=== PATIENT | male | born 1940 | race Caucasian/White ===

== ENCOUNTER 2020-08-02 19:18 | Inpatient (IN) | payer MEDICARE ==
[~2020-08-02 19:18] MED LIST: Iopamidol-370 76% 500 ML 1 ML ONE
[2020-08-02 19:44] LABS: #Lymphocytes 1.5 thou/uL (1.20-3.40); #Monocytes 0.7 thou/uL (0.11-0.59); #Neutrophils 9.9 thou/uL (1.40-6.50); %Basophils 0.3 % (0.0-1.0); %Eosinophils 0.3 % (0.0-10.0); %Lymphocytes 12.4 % (21.0-51.0); %Monocytes 5.7 % (0.0-10.0); %Neutrophils 81.2 % (42.0-75.0); Hemoglobin 15.2 g/dL (14.0-18.0); Mean Corpuscular HGB CONC 34.4 g/dL (32.0-36.0); Mean Corpuscular Hemoglobin 31.6 pg (27.0-31.0); Mean Corpuscular Volume 91.7 fL (78.0-98.0); Mean Platelet Volume 8.8 fL (7.4-10.4); Platelet Count 194 thou/uL (130-400); RBC Distribution Width 11.7 % (11.5-14.5); White Blood Cell (WBC) Count 12.1 thou/uL (4.8-10.8)
[2020-08-02 19:52] LABS: PTT 26.5 sec (22.9-36.1); Prothrombin Time 13.8 sec (12.0-14.7)
[2020-08-02 20:01] LABS: ALT (SGPT) 19 U/L (8-55); AST (SGOT) 18 U/L (5-34); Albumin 3.8 g/dL (3.4-4.8); Alkaline Phosphatase 87 U/L (40-110); Anion Gap 17 mmol/L (10-20); BUN (Urea Nitrogen) 16 mg/dL (8.4-25.7); Bilirubin, Total 0.6 mg/dL (0.2-1.2); CK (CPK) 111 U/L (30-200); Calc. Creatinine Clearance 0 mL/min (70-130); Calcium 8.7 mg/dL (7.8-10.44); Carbon Dioxide 25 mmol/L (23-31); Chloride 104 mmol/L (98-107); Globulin 2.9 g/dL (2.4-3.5); Glucose 134 mg/dL (83-110); Lipase 20 U/L (8-78); Potassium 3.6 mmol/L (3.5-5.1); Protein, Total 6.7 g/dL (5.8-8.1); Sodium 142 mmol/L (136-145)
[2020-08-02 20:04] LABS: Acetaminophen Less than 6.0 mcg/mL (10.0-30.0); Alcohol Less than 10 mg/dL (Less than 10); Salicylate Less than 8.0 mg/dL (15.0-30.0)
--- NOTE | 2020-08-02 20:37 | CT ---
CT OF BRAIN PERFORMED WITHOUT CONTRAST ENHANCEMENT: 08/02/20 HISTORY: Stroke alert. There is generalized ventricular and sulcal prominence. There is chronic white matter change. There i s no signs of intracerebral hemorrhage or extra-axial fluid collection. Mastoid air cells and visuali zed sinuses are clear. IMPRESSION: 1. No acute intracranial abnormalities. 2. Findings telephoned to Dr. Casas at 2000 hours. POS: [facility]
--- NOTE | 2020-08-02 20:42 | RAD ---
PORTABLE CHEST: 08/02/20 HISTORY: Syncopal episode. CVA. Heart size within normal limits. There are atherosclerotic changes of the aorta. The lungs are clear of infiltrates. The bones appear demineralized. IMPRESSION: No active intrathoracic disease. POS: [facility]
[2020-08-02 20:52] LABS: Bacteria/HPF None Seen HPF (None Seen); Bilirubin Negative (Negative); Blood, Urine 2+ (Negative); Clarity Clear (Clear); Glucose, Urine (Dipstick) Normal (Negative); Ketone, Urine 20 mg/dL (Negative); Leukocyte Negative Leu/uL (Negative); Mucous/LPF 1+ LPF (<2+); Nitrite Negative (Negative); Protein, Urine (Dipstick) 100 mg/dL (Neg-Trace); Specific Gravity, Urine 1.016 (1.002-1.036); Squamous Epithelial 0-3 HPF (0-3); Urobilinogen Normal mg/dL (Less than 2); pH, Urine 5.5 (5.0-9.0)
[2020-08-02] MEDS ORDERED: Enoxaparin Sodium 80 MG/0.8 ML SYRINGE ONE (20:57)
[2020-08-02] MEDS ORDERED: Aspirin 300 MG Suppository ONE (20:57)
[2020-08-02 21:00] LABS: Amphetamine Not Detected (NotDetected); Barbiturates Screen Not Detected (NotDetected); Benzodiazepine Screen Not Detected (NotDetected); Cocaine Metabolite Screen Not Detected (NotDetected); Medtox Control Line Valid? VALID (VALID); Medtox Reader # READER 4; Methadone Not Detected (NotDetected); Methamphetamine Not Detected (NotDetected); Opiate Screen Not Detected (NotDetected); Oxycodone Screen Not Detected (NotDetected); Phencyclidine (PCP) Not Detected (NotDetected); THC/Cannabinoid Screen Not Detected (NotDetected); Tricyclic Screen Not Detected (NotDetected)
[2020-08-02] MEDS ORDERED: Diltiazem HCl 125 MG, Admixture Fee 1 EACH in Sodium Chloride 0.9% 100 ML IVPB SCH (21:00)
--- NOTE | 2020-08-02 21:43 | CT ---
CT ANGIO OF HEAD AND NECK PERFORMED WITH INTRAVENOUS CONTRAST ENHANCEMENT WITH 3D RECONSTRUCTIONS: 08/02/20 HISTORY: Stroke symptoms. Lung apices are clear. Bilateral thyroid nodules are identified. These would be better investigated w ith ultrasound on an nonemergent basis. No significant jugular chain adenopathy. The parotid and subm andibular gland regions are unremarkable. Parapharyngeal spaces are clear. Good angiographic study was obtained. There is a separate origin of the left common carotid artery fr om the aortic arch. The left vertebral is slightly larger than the right but both make contribution t o the basilar artery. Right common internal and external carotid arteries show no significant stenosis by NASCET criteria. Similar changes are seen on the left. There is some calcified plaque at the origin of the left internet developer al carotid artery. CT ANGIO OF BRAIN PERFORMED WITH INTRAVENOUS CONTRAST ENHANCEMENT WITH 3D RECONSTRUCTIONS: The vertebral basilar system is unremarkable. Posterior cerebral arteries appear normal. There is calcified plaque in the cavernous portions of both internal carotid arteries. The anterior a nd middle cerebral arteries and their branches appear normal. IMPRESSION: Unremarkable CT angio of head and neck. Findings telephoned to Dr. Casas at 2019 hours. POS: [facility]
[2020-08-02 23:10] LABS: Troponin I 0.022 ng/mL (< 0.028)
--- NOTE | 2020-08-03 00:23 | HP ---
CHIEF COMPLAINT: Fall and possible stroke. HISTORY OF PRESENT ILLNESS: Mr. Ontiveros is a 79-year-old male with past medical history of ? Dementia, ? CVA, was brought to the emergency room after his daughter found him at the bedside after an unwitnessed fall. The patient used Life Alert button to call for help. She was notified around 6 p.m. and that he hit the button and EMS responded. Daughter reports the patient had a fall four weeks ago and was hospitalized and went to a rehab facility. She was not told that he had a stroke, but she was told that he probably had suffered left vertebral fracture. He went to rehab. Moved to independent living [facility] in [place], daughter reports caregiver does come once a day to help and came this a.m. Daughter reports that the patient has been increasingly confused, slurring of speech and drooling since the first fall four weeks ago. It has been getting worse. According to her, he does not take a lot of medications. Denies being on aspirin or on any blood thinners. On workup in the emergency room, the patient was found to be in atrial fibrillation with rapid ventricular response. No history of atrial fibrillation as per daughter. The patient also was found to have right facial drooping. The patient has hard time with speech. No further history can be obtained at this time since the patient is unable to give any detailed history. PAST MEDICAL HISTORY: Dementia. PAST SURGICAL HISTORY: None per daughter. FAMILY HISTORY: Reviewed and noncontributory. SOCIAL HISTORY: The patient drinks every day alcohol as per daughter. ? alcohol abuse. ALLERGIES: NO KNOWN ALLERGIES. HOME MEDICATIONS: The patient is on . REVIEW OF SYSTEMS: Unable to obtain due to patient's underlying medical condition/dementia/dysphasia. PHYSICAL EXAMINATION: GENERAL: The patient is awake, alert, has mild right facial drooping. VITAL SIGNS: Blood pressure 146/82, heart rate 120, respiratory rate 20, oxygen saturation 100% on room air, and temperature 98.8. HEENT: Normocephalic, atraumatic. NECK: Supple. CHEST: Decreased air entry bilaterally. HEART: Irregularly irregular, tachycardic. ABDOMEN: Soft, nontender. Bowel sounds present. NEUROLOGIC: Awake, alert, aphasia, right facial drooping, moving all other extremities. PSYCH: Unable to assess. EXTREMITIES: No clubbing, no cyanosis. GENITOURINARY: No suprapubic tenderness. No flank tenderness. LABORATORY DATA: Chest x-ray, no acute finding. CT of the brain, no acute intracranial abnormality. Troponin 0.01. Electrolytes reviewed. Glucose 134, otherwise electrolytes are unremarkable. WBC count is 12.1, hemoglobin 16.2, platelets 194. ASSESSMENT: 1. Atrial fibrillation with rapid ventricular response? New onset of atrial fibrillation. 2. Cerebrovascular accident? acute. 3. Fall. 4. History of alcohol abuse. 5. Dementia. PLAN: 1. Admit. 2. Telemetry monitoring. 3. Frequent neuro checks. 4. Aspirin. 5. Lovenox was started in the emergency room, reassess in a.m. 6. MRI of the brain. 7. 2D echo. 8. Consult Cardiology in a.m. for evaluation and further recommendations. 9. Reconcile home medications. 10. DVT prophylaxis as appropriate. 11. PT/OT eval and treat. 12. Expected length of stay, 2 midnights or more. Case discussed with ED physician and the patient's daughter. Job ID: [id number]
[2020-08-03 00:36] VITALS: BMI 30.3
[2020-08-03] MEDS: Rosuvastatin 20 MG TAB PO SCH ×2 (00:37→20:40)
[2020-08-03] MEDS ORDERED: D5 1/2 NS w/20 mEq KCL 1,000 ML ONE (01:10)
[2020-08-03] MEDS ORDERED: D5 1/2 NS w/20 mEq KCL 1,000 ML IV SCH (01:15)
[2020-08-03 02:16] LABS: Troponin I 0.021 ng/mL (< 0.028)
[2020-08-03 02:29] LABS: Cardiac Risk 2.9 (Less than 4.5)
[2020-08-03] MEDS ORDERED: Aspirin 325 mg Enteric Coated Tablet PO SCH (09:00)
[2020-08-03 09:17] LABS: SARS-CoV-2 MS2 Positive; SARS-CoV-2 N Gene Negative; SARS-CoV-2 S Gene Negative; SARS-CoV-2 by NAA Not Detected (NotDetected); SARS-CoV-2 orf1ab Negative
[2020-08-03] MEDS ORDERED: Aspirin 300 MG Suppository PR SCH ×2 (10:39→11:15)
--- NOTE | 2020-08-03 12:53 | CON ---
NEUROLOGY CONSULTATION: DATE OF CONSULTATION: 08/03/2020 REASON FOR CONSULTATION: Status post fall, possible stroke. HISTORY OF PRESENT ILLNESS: Mr. Ontiveros is a 79-year-old male with medical history significant for dementia and prior stroke, presented to the emergency department after his daughter found him down at the bedside with unwitnessed fall. The patient used Life Alert button to call for help. She was notified around 6 p.m. and heard the emergency button and EMS responded. Per daughter, he had a fall 4 weeks ago and was hospitalized and went to the rehab facility. Daughter reported that he has been extremely confused with slurred speech and drooling since fall 4 weeks ago, but it has worsened significantly. The patient is not on any aspirin or blood thinners. In the emergency room, he was found to be in atrial fibrillation with rapid ventricular response and noted to have right facial droop with unintelligible speech, so he was admitted for stroke workup. Patient is unable to provide the history so history is obtained from review of the medical records PAST MEDICAL HISTORY: Dementia. PAST SURGICAL HISTORY: None. FAMILY HISTORY: No significant family history. SOCIAL HISTORY: The patient lives in [facility]. Denies smoking. He drinks alcohol. There is a concern about alcohol abuse. ALLERGIES: NO KNOWN DRUG ALLERGIES. HOME MEDICATIONS: Please see reconciled, updated medication list. REVIEW OF SYSTEMS: Unobtainable due to the patient's mental status. Vital Signs & Weight: Vital Signs (12 hours) Temp Pulse Ox 08/03/20 12:22 97.0 F L 08/03/20 08:00 99 08/03/20 04:00 95 08/03/20 03:45 98.2 F Weight Weight 176 lb 12.972 oz Most Recent Monitor Data Heart Rate from ECG 74 NIBP 132/91 NIBP BP-Mean 104 Respiration from ECG 21 SpO2 100 I&O: 08/02/20 08/03/20 08/04/20 06:59 06:59 06:59 Intake Total 573 Output Total 400 Balance 173 Additional Labs: Accuchecks 08/02/20 19:23 POC Glucose 132 H Active Medications Generic Name Dose Route Start Last Admin Trade Name Freq PRN Reason Stop Dose Admin Rosuvastatin Calcium 40 mg 08/02/20 21:00 08/03/20 00:37 Rosuvastatin 20 Mg Tab PO Not Given HS QUINN - Exam General Appearance: NAD Eye: PERRL ENT: normocephalic atraumatic Neck: supple Heart: irregular Respiratory: CTAB Gastrointestinal: soft, non-tender Extremities: no cyanosis, no clubbing, no edema Skin: normal turgor Neurological: Mental status; the patient is alert, awake, but has significant dysarthria . Motor; muscle tone and bulk are normal. Moving all 4 extremities equally and symmetrically. Sensory; withdraws to nailbed pressure bilaterally. Cerebellar; did not cooperate with testing. Gait; deferred due to the patient's safety reason. DIAGNOSTIC STUDIES: Data reviewed. I reviewed the CT scan which was negative for acute intracranial pathology. Chest x-ray did not reveal any acute cardiopulmonary process. ASSESSMENT AND PLAN: Mr. Ontiveros is a 79-year-old male with a history significant for alcohol abuse and dementia, presented to the emergency room after a fall and daughter reported slurred speech and confusion for the last few days. He was also found to be in atrial fibrillation with rapid ventricular response. Consider MRI of the brain to rule out acute intracranial process . EEG to evaluate for cortical irritability and to rule out seizures. CTA of the head and neck reviewed, which was negative for acute intracranial pathology. 2D echo to evaluate for left ventricular ejection fraction. Continue telemetry, which showed atrial fibrillation, consider Cardiology input. NPO until cleared by Speech. Aspirin and statin for secondary stroke prevention. Check hemoglobin A1c, fasting lipid panel, and TSH. Start home medication once the patient is cleared by Speech, PT/OT. Continue medical management per primary team. We will continue to follow. Thank you for the consult. Job ID: [id number] MTDD
[2020-08-03] MEDS ORDERED: Ondansetron PF 4 MG/2 ML Vial IVP PRN (13:14)
--- NOTE | 2020-08-03 13:16 | PDOC.HOSPP ---
- Subjective Subjective: Patient is a 79 years old gentleman, who has significant past medical histories of dementia, alcohol abuse, lives by himself, presented to the ED with status post fall, and reportedly slurred speech, confusion for the past few days. Further work-up, found patient was in atrial fibrillation with RVR. Patient was ultimately admitted to hospitalist service for further stroke work- up. - Objective Vital Signs & Weight: Vital Signs (12 hours) Temp Pulse Ox 08/03/20 12:22 97.0 F L 08/03/20 08:00 99 08/03/20 04:00 95 08/03/20 03:45 98.2 F Weight Weight 176 lb 12.972 oz Most Recent Monitor Data Heart Rate from ECG 74 NIBP 132/91 NIBP BP-Mean 104 Respiration from ECG 21 SpO2 100 I&O: 08/02/20 08/03/20 08/04/20 06:59 06:59 06:59 Intake Total 573 Output Total 400 Balance 173 Result Diagrams: 08/02/20 19:23 08/02/20 19:23 Additional Labs: Accuchecks 08/02/20 19:23 POC Glucose 132 H Radiology Reviewed by me: Yes EKG Reviewed by me: Yes Hospitalist ROS - Medication Medications: Active Medications Generic Name Dose Route Start Last Admin Trade Name Freq PRN Reason Stop Dose Admin Rosuvastatin Calcium 40 mg 08/02/20 21:00 08/03/20 00:37 Rosuvastatin 20 Mg Tab PO Not Given HS QUINN - Exam General Appearance: NAD Eye: PERRL ENT: normocephalic atraumatic Neck: supple Heart: irregular Respiratory: CTAB Gastrointestinal: soft, non-tender Extremities: no cyanosis, no clubbing, no edema Skin: normal turgor Neurological: speech deficit Musculoskeletal: normal tone Psychiatric: normal behavior, lethargic Hosp A/P - Plan Patient is a 79 years old gentleman, who has significant past medical history of dementia, alcohol abuse, lives by himself, presented to the ED with status post fall, and reportedly slurred speech, confusion for the past few days. Further work-up, found patient was in atrial fibrillation with RVR. Patient was ultimately admitted to hospitalist service for further stroke work- up. Atrial Fib with RVR --cont Cardizem gtt for rate control, follow Echo --ASA HI for now. Pending MRI, pt needs to be anticoagulated when OK with neurol ogy --Cardiology consulted Dysarthria/Confusion - concerning for possible CVA --cont stroke workup, follow MRI --SP/PT/OT eval --follow EEG --appreciate neurology input. Cont ASA HI for now. Statin therapy when cleared by SP Dementia --supportive cares. Pending home meds.
--- NOTE | 2020-08-03 13:25 | MRI ---
MRI BRAIN NONCONTRAST: DATE: 08/03/2020 HISTORY: 79-year-old male with acute stroke COMPARISON: None FINDINGS: There is a small hyperintense lesion on T2 WI and FLAIR with strongly restricted diffusion indicating acute infarction, at the posterior upper aspect of left basal ganglia, measuring approximately 1 x 0.8 cm, and extending superiorly to the left periventricular white matter, questionable involving bod y of left caudate nucleus. There are additional scattered tiny foci of faint, minimally restricted diffusion elsewhere, includin g periventricular white matter abutting lateral edge of posterior body of right lateral ventricle, periatrial white matter abutting the lateral aspect of the trigone of the right lateral ventricle, an d regions in the bilateral centrum semiovale which are questionable for subacute tiny infarctions. There are multiple tiny old lacunar infarctions in the bilateral centrum semiovale and adrian radiata , and in the bilateral cerebellar hemispheres and adrianne. There are numerous punctate foci of hemosiderin representing remote microhemorrhages in the following locations: Large number and bilateral thalami, several in bilateral basal ganglia, a few in the left parietal lo be, several in right occipital and at least one in the left occipital lobes, numerous in bilateral cerebellar hemispheres, and a few in the adrianne. This could indicate either amyloid angiopathy, chronic hypertensive encephalopathy, or combination of both. There is atrophy of the cerebellum and brainstem as well as cerebrum diffusely. There are confluent hyperintense signal abnormalities throughout the periventricular white matter, ex tending into the adjacent deep and subcortical white matter. No obstructive hydrocephalus, acute intra-axial hemorrhage, mass effect, midline shift, or extra-axia l fluid collection. Appropriate flow voids are maintained in the major central arteries of [place]. IMPRESSION: 1) acute lacunar infarction of left corpus striatum. 2) multiple old lacunar infarctions of bilateral cerebral white matter, brainstem, thalami, and cereb ellum; and possibly bilateral corpus striatum. 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 4) diffuse brain atrophy. 5) moderate to severe chronic ischemic white matter changes (small vessel disease)
--- NOTE | 2020-08-03 15:38 | PDOC.EEG ---
Neurology EEG Report - Report Report: This EEG was performed using 24 channel [employer] video digital EEG machine with 24 disc electrodes. This was an extended 2 hours 6 minutes of inpatient video EEG recording. Digital analysis of the EEG was done for Vikash and seizure detection which revealed no abnormalities. Background: There is a nonsustained posterior background rhythm of 8 to 8.5 Hz. Minimal reactivity seen with eye opening and closure. Photic stimulation: Bioccipital symmetric driving response is observed. Hyperventilation: Not performed Sleep: Drowsiness and sleep are observed. EEG diagnosis: Normal awake drowsy and sleep EEG. Clinical interpretation: This is a normal EEG study
--- NOTE | 2020-08-03 17:41 | CON ---
DATE OF CONSULTATION: 08/03/2020 INDICATION FOR CONSULTATION: A 79-year-old patient, who was admitted after a fall, has dementia and was found to be in atrial fibrillation. He has had some rapid ventricular response. At this time, the patient still remains confused. We get very little history from the patient, most of the information was obtained after evaluation of the patient and by review of the records. Apparently, he lives in independent living and his daughter occasionally checks on him and she is the one actually that has noticed and give most of the history, apparently saying that he has been more confused recently. He is having problems with speech. He also has some history of alcohol use apparently. He has had no history of atrial fibrillation in the past. He has had no significant cardiac history that we aware of. PAST MEDICAL HISTORY: His only past medical history is that he is having now some dementia. I cannot get any past medical history from the patient, but the records refer to some dementia, otherwise relatively unremarkable past medical history. FAMILY HISTORY: Also was unobtainable. According to the records it is noncontributory. SOCIAL HISTORY: He drinks alcohol apparently on a daily basis. ALLERGIES: NONE. MEDICATIONS: At this time, he is on; 1. Aspirin 300 mg. 2. Metoprolol 25 mg, which I just started today 25 mg b.i.d. 3. Crestor 40 mg at bedtime. 4. Ondansetron 4 mg IV q.6 hours p.r.n. REVIEW OF SYSTEMS: Unobtainable. PHYSICAL EXAMINATION: GENERAL: Reveals an elderly gentleman, who does appear to be ill. He was sleeping when I first arrived in the room. He then woke and did have some coughing, but otherwise remained stable. VITAL SIGNS: Blood pressure was 137/77, heart rate is 72 and irregular, respiratory rate is about as 18, and O2 saturations are 97%. HEENT: Unremarkable. Carotid pulses are present. I did not hear any significant bruits. CHEST: Actually clear to auscultation. I did not hear any significant rales, rhonchi, or wheezing at this time. He does have some decreased breath sounds. Otherwise, I do not hear any rales, rhonchi, or wheeze. CARDIOVASCULAR: Reveals an irregular rhythm. He has a systolic murmur at the apex, 2 to 3/6. There were no heaves or thrills. ABDOMEN: Unremarkable. EXTREMITIES: No clubbing, cyanosis, or edema. Pedal pulses are present. NEUROLOGIC: Difficult to determine as the patient may have had a previous stroke. He does not speak clearly and does not seem to understand exactly, where he is and has some degree of dementia. LABORATORY DATA: Shows a WBC of 12.1, hemoglobin 15.2, and platelet count 194,000. Sodium is 142, potassium 3.6, bicarb was 25, BUN was 16 with a creatinine 0.88, and blood sugar was 134. Troponin I was 0.021. LDL was 89 with HDL of 57 and triglycerides were 90. His troponin I did peak at 0.022, is now decreased back down to 0.021. No significant increase in the cardiac enzymes, most likely this is due to demand ischemia associated with the atrial fibrillation. IMPRESSION AND PLAN: Atrial fibrillation with rapid ventricular response. At this time the heart rate appears to be under much better control. We will add beta-blockers to the patient. He has also been placed on IV diltiazem. We can add beta blockers for long-term heart rate control. He may convert back to atrial fibrillation. I would suggest that if he does not have any internal head trauma, he be started on some type of oral anticoagulation, if he is able to take the medications and if he is compliant with medications. We will discuss this with the neurologist to see whether or not he will be able to take any oral anticoagulations and certainly start Eliquis in this patient. His renal function appears to be normal, so he could try either try the Eliquis, Pradaxa, or Xarelto. Uncertain the duration of his atrial fibrillation at times. Earlier today, he seemed to be in a sinus rhythm with frequent PACs. The EKG do show atrial fibrillation. I do not see any clear sinus rhythm since the patient has been admitted. We will obtain an echocardiogram for evaluation of left ventricular systolic function. Please note, he did have one rhythm strip, which did appear to be mainly sinus rhythm, but certainly could be a somewhat atypical atrial fibrillation. We will obtain echocardiogram for evaluation of left ventricular systolic function. We will decide whether or not he may be a candidate for cardioversion based on the left atrial size and whether or not he will be compliant with the medications. Job ID: [id number]
[2020-08-03] MEDS: Metoprolol Tartrate 25 MG TAB PO SCH (20:40)
[2020-08-03] MEDS: Metoprolol Tartrate 5 MG/5 ML VIAL IVP SCH (20:40)
[2020-08-04] MEDS: Sodium Chloride 0.9% 1,000 ML IV SCH ×2 (00:34→12:27)
[2020-08-04] MEDS: Metoprolol Tartrate 25 MG TAB PO SCH (08:02)
[2020-08-04] MEDS: Metoprolol Tartrate 5 MG/5 ML VIAL IVP SCH ×2 (09:06→21:53)
[2020-08-04] MEDS: Aspirin 300 MG Suppository PR SCH (10:53)
--- NOTE | 2020-08-04 11:02 | PDOC.HOSPP ---
- Objective Vital Signs & Weight: Vital Signs (12 hours) Temp Pulse Resp BP BP Pulse Ox 08/04/20 09:15 62 152/74 H 08/04/20 09:09 78 144/75 H 08/04/20 08:00 144/75 H 08/04/20 07:48 98.1 F 78 16 142/78 H 97 08/04/20 04:00 150/80 H 08/04/20 03:57 97.6 F 66 16 150/80 H 96 08/04/20 00:00 130/68 08/03/20 23:31 98.0 F 64 16 130/68 94 L Weight Admit Weight 176 lb 12.972 oz Weight 176 lb 12.972 oz Most Recent Monitor Data Heart Rate from ECG 72 NIBP 137/77 NIBP BP-Mean 97 Respiration from ECG 21 SpO2 98 I&O: 08/03/20 08/04/20 08/05/20 06:59 06:59 06:59 Intake Total 573 750 Output Total 400 250 350 Balance 173 -250 400 Result Diagrams: 08/02/20 19:23 08/02/20 19:23 Hospitalist ROS - Medication Medications: Active Medications Generic Name Dose Route Start Last Admin Trade Name Freq PRN Reason Stop Dose Admin Sodium Chloride 1,000 mls @ 75 mls/hr 08/04/20 00:30 08/04/20 00:34 Normal Saline 0.9% IV 1,000 mls .[id number] QUINN Administration Metoprolol Tartrate 25 mg 08/03/20 21:00 08/04/20 08:02 Metoprolol Tartrate 25 Mg Tab PO Not Given BID QUINN Metoprolol Tartrate 5 mg 08/03/20 21:00 08/04/20 09:06 Metoprolol Tartrate 5 Mg/5 Ml Vial IVP 5 mg BID QUINN Administration Rosuvastatin Calcium 40 mg 08/02/20 21:00 08/03/20 20:40 Rosuvastatin 20 Mg Tab PO Not Given HS QUINN Hosp A/P - Plan 79 years old gentleman, with significant past medical history of dementia, alcohol abuse, lives by himself, presented to the ED with status post fall, and reportedly slurred speech, confusion for the past few days. Also noted to have atrial fibrillation with RVR. Atrial Fib with RVR --cont Cardizem gtt for rate control, -Echo showed EF of 60% with diastolic dysfunction. --ASA MN for now. 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 If that is the case putting him on anticoagulation would put him at higher risk than what he is currently. will check with the neurology as well. Dysarthria/Confusion - concerning for possible CVA Underlying history of dementia --SP/PT/OT eval MRI report noted as above. --appreciate neurology input. Cont ASA MN for now. Statin therapy when cleared by SP -EEG showed normal awake drowsy and asleep electroencephalogram. Dementia --supportive cares. Pending home meds.
--- NOTE | 2020-08-04 11:33 | PDOC.CPN ---
- Subjective Date: 08/04/20 Time: 10:00 Interval history: No overnight events, patient is in SR with a HR in the 70's, he had no episodes of RVR overnight. He is unable to answer questions this morning. - Review of Systems ROS unobtainable: due to mental status - Objective Allergies/Adverse Reactions: Allergies Allergy/AdvReac Type Severity Reaction Status Date / Time No Known Drug Allergies Allergy Unverified 08/02/20 20:34 Visit Medications: Current Medications Aspirin (Aspirin 300 Mg Suppository) 300 mg AR DAILY [facility] Last Admin: 08/04/20 10:53 Dose: 300 mg Documented by: Sodium Chloride (Normal Saline 0.9%) 1,000 mls @ 75 mls/hr IV .[id number] [facility] Last Admin: 08/04/20 00:34 Dose: 1,000 mls Documented by: Metoprolol Tartrate (Metoprolol Tartrate 25 Mg Tab) 25 mg PO BID [facility] Last Admin: 08/04/20 08:02 Dose: Not Given Documented by: Metoprolol Tartrate (Metoprolol Tartrate 5 Mg/5 Ml Vial) 5 mg IVP BID [facility] Last Admin: 08/04/20 09:06 Dose: 5 mg Documented by: Ondansetron HCl (Ondansetron Pf 4 Mg/2 Ml Vial) 4 mg IVP Q6H PRN PRN Reason: Nausea/Vomiting Rosuvastatin Calcium (Rosuvastatin 20 Mg Tab) 40 mg PO HS [facility] Last Admin: 08/03/20 20:40 Dose: Not Given Documented by: Sodium Chloride (Flush - Normal Saline 10 Ml Syringe) 10 ml IVF PRN PRN PRN Reason: Saline Flush Vital Signs & Weight: Vital Signs Temp Pulse Resp BP BP Pulse Ox 08/04/20 09:15 62 152/74 H 08/04/20 09:09 78 144/75 H 08/04/20 08:00 144/75 H 08/04/20 07:48 98.1 F 78 16 142/78 H 97 08/04/20 04:00 150/80 H 08/04/20 03:57 97.6 F 66 16 150/80 H 96 08/04/20 00:00 130/68 Admit Weight 176 lb 12.972 oz Weight 176 lb 12.972 oz - CHADS-VASc Age >75: 2 Stroke/TIA/thrombo-embolism: 2 Risk Score: 4 - Quality Measures Condition: Atrial Fibrillation/Flutter (hx or current) CV meds: Beta Monica: Yes (IV Metoprolol ), REMY/ARB: No (Unable to take PO medications), Statin: No (Unable to take PO medications), ASA: Yes, Plavix/Effient/Brilinta: No (Unable to take PO medications), Anticoagulant: No (Not a good candidate for REHAN d/t falls & dementia) - Physical Exam General: other (alert, lying in bed, not oriented.) HEENT: mucus membranes moist Neck: supple neck, midline trachea, no JVD/HJR, no bruit Cardiac: regular rate, systolic murmur Lungs: clear to auscultation, no wheeze, rales, rhonchi Neuro: grossly intact Abdomen: active bowel sounds, soft Extremities: no edema, 2+ popliteal, 2+ Posterior Tibial, 2+ Dorsalis Pedus Skin: clear Musculoskeletal: no pain - Labs Result Diagrams: 08/02/20 19:23 08/02/20 19:23 Troponin/CKMB Troponin I 0.021 ng/mL (< 0.028) 08/03/20 01:48 - EKG Interpretation EKG: sinus rhythm (patient in SR today.) - Assessment/Plan Assessment/Plan: 1. Atrial fibrillation with rapid ventricular response: he is in SR this morning with a HR of 62, he had no episodes of RVR overnight. He is NPO right now while we await a speech evaluation and possible swallow study. He is getting IV Metoprolol for rate control, we will continue this. He is not a good candidate for oral anticoagulation as he is an extremely high fall risk and history of dementia, he may not be compliant with medications because of this. 2. His Brain MRI also showed several remote microhemorrhages. 3. His echocardiogram showed an EF 55-60%, probably diastolic dysfunction, Moderately dilated left atrium at 5.02 cm, mild mitral regurgitation, pulmonic regurgitation, and trace tricuspid regurgitation. We will continue to monitor this patient and will continue with current treatment plan at this time until speech evaluation completed before starting on PO medication. Pt. seen and eval. by me. I agree with the a/P by the SHIPPING INSPECTOR. poor prognosis. rodrigo
--- NOTE | 2020-08-04 16:17 | PDOC.NEUPN ---
- Subjective Encounter Date: 08/04/20 Subjective: Mr. Mendes has more alert today and follows commands intermittently - Objective Vital Signs & Weight: Vital Signs (12 hours) Temp Pulse Pulse Resp BP BP BP 08/04/20 15:26 98.3 F 65 16 150/76 H 08/04/20 14:25 62 152/74 H 08/04/20 12:00 150/76 H 08/04/20 11:57 98.2 F 64 18 150/76 H 08/04/20 09:15 62 152/74 H 08/04/20 09:09 78 144/75 H 08/04/20 08:00 144/75 H 08/04/20 07:48 98.1 F 78 16 142/78 H Pulse Ox Pulse Ox 08/04/20 15:26 97 08/04/20 14:25 97 08/04/20 12:00 08/04/20 11:57 97 08/04/20 09:15 08/04/20 09:09 08/04/20 08:00 08/04/20 07:48 97 Weight Admit Weight 176 lb 12.972 oz Weight 176 lb 12.972 oz Most Recent Monitor Data Heart Rate from ECG 72 NIBP 137/77 NIBP BP-Mean 97 Respiration from ECG 21 SpO2 98 I&O: 08/03/20 08/04/20 08/05/20 06:59 06:59 06:59 Intake Total 573 750 Output Total 400 250 460 Balance 173 -250 290 Result Diagrams: 08/02/20 19:23 08/02/20 19:23 Radiology Reviewed by me: Yes EKG Reviewed by me: Yes ROS - Review of Systems ROS unobtainable: due to mental status - Medication Medications: Active Medications Generic Name Dose Route Start Last Admin Trade Name Freq PRN Reason Stop Dose Admin Aspirin 300 mg 08/04/20 09:00 08/04/20 10:53 Aspirin 300 Mg Suppository HI 300 mg DAILY [facility] Administration Sodium Chloride 1,000 mls @ 75 mls/hr 08/04/20 00:30 08/04/20 12:27 Normal Saline 0.9% IV 1,000 mls .[id number] [facility] Administration Metoprolol Tartrate 25 mg 08/03/20 21:00 08/04/20 08:02 Metoprolol Tartrate 25 Mg Tab PO Not Given BID [facility]N Metoprolol Tartrate 5 mg 08/03/20 21:00 08/04/20 09:06 Metoprolol Tartrate 5 Mg/5 Ml Vial IVP 5 mg BID [facility] Administration Rosuvastatin Calcium 40 mg 08/02/20 21:00 08/03/20 20:40 Rosuvastatin 20 Mg Tab PO Not Given HS [facility] - Exam General Appearance: NAD Eye: PERRL ENT: normocephalic atraumatic Neck: supple Respiratory: CTAB Cardiovascular: RRR Gastrointestinal: soft Extremities: no cyanosis Skin: normal turgor Neurological: no new deficit Musculoskeletal: normal tone, no muscle wasting PSYCH: normal affect, normal behavior, oriented to person, oriented to place Results - Labs Result Diagrams: 08/02/20 19:23 08/02/20 19:23 Lab results: WBC 12.1 thou/uL (4.8-10.8) H 08/02/20 19:23 Hgb 15.2 g/dL (14.0-18.0) 08/02/20 19:23 Hct 44.0 % (42.0-52.0) 08/02/20 19:23 MCV 91.7 fL (78.0-98.0) 08/02/20 19:23 Plt Count 194 thou/uL (130-400) 08/02/20 19:23 Neutrophils % 81.2 % (42.0-75.0) H 08/02/20 19:23 Sodium 142 mmol/L (136-145) 08/02/20 19:23 Potassium 3.6 mmol/L (3.5-5.1) 08/02/20 19:23 Chloride 104 mmol/L (98-107) 08/02/20 19:23 Carbon Dioxide 25 mmol/L (23-31) 08/02/20 19:23 BUN 16 mg/dL (8.4-25.7) 08/02/20 19:23 Creatinine 0.88 mg/dL (0.7-1.3) 08/02/20 19:23 Glucose 134 mg/dL (83-110) H 08/02/20 19:23 Lactic Acid 1.5 mmol/L (0.5-2.2) 08/02/20 19:39 Calcium 8.7 mg/dL (7.8-10.44) 08/02/20 19:23 Total Bilirubin 0.6 mg/dL (0.2-1.2) 08/02/20 19:23 AST 18 U/L (5-34) 08/02/20 19:23 ALT 19 U/L (8-55) 08/02/20 19:23 Alkaline Phosphatase 87 U/L (40-110) 08/02/20 19:23 Creatine Kinase 111 U/L (30-200) 08/02/20 19:23 Troponin I 0.021 ng/mL (< 0.028) 08/03/20 01:48 Serum Total Protein 6.7 g/dL (5.8-8.1) 08/02/20 19:23 Albumin 3.8 g/dL (3.4-4.8) 08/02/20 19:23 Lipase 20 U/L (8-78) 08/02/20 19:23 Urine Ketones 20 mg/dL (Negative) A 08/02/20 19:51 Urine Blood 2+ (Negative) A 08/02/20 19:51 Urine Nitrite Negative (Negative) 08/02/20 19:51 Ur Leukocyte Esterase Negative Abril/uL (Negative) 08/02/20 19:51 Urine RBC 11-20 HPF (0-3) A 08/02/20 19:51 Urine WBC 4-6 HPF (0-3) A 08/02/20 19:51 Ur Squamous Epith Cells 0-3 HPF (0-3) 08/02/20 19:51 Urine Bacteria None Seen HPF (None Seen) 08/02/20 19:51 - EKG Interpretation EKG: Atrial fibrillation - Radiology Interpretation MRI - head Additional Comment: Multiple acute infarctions in multiple vascular territories. PN A/P (1) Acute CVA (cerebrovascular accident) Code(s): I63.9 - CEREBRAL INFARCTION, UNSPECIFIED Status: Acute (2) Atrial fibrillation Code(s): I48.91 - UNSPECIFIED ATRIAL FIBRILLATION Status: Acute - Plan Daily Plan: PT/OT, speech therapy, DVT proph w/SCDs Mr. Jones is a 79-year-old male who was brought to the emergency room after he has been found down and had strokelike symptoms. MRI of the brain reviewed which showed multiple tiny acute lacunar infarct in the left corpus callosum and remote microhemorrhages. Telemetry showed new onset atrial fibrillation. Cardiology is on board. Suggested Eliquis for atrial fibrillation. There is a concern about remote microhemorrhages but patient is okay to take Eliquis since risk is since resolved with the benefits. It was advised that discussion should be done with the patient's daughter regarding the risk of bleed due to falls with Eliquis before starting the medication. 2D echocardiogram showed left ventricular ejection fraction 55 to 60%. No thr ombus or PFO Neurochecks every 4 hours. CTA of the head and neck did not reveal hemodynamically significant stenosis. N.p.o. till cleared by speech. PT/OT Continue aspirin per rectally and start high intensity statin for secondary stroke prevention when patient is cleared by speech. Continue medical management per primary team. Plan discussed in detail with the patient and also with the nursing staff.
[2020-08-04] MEDS: Rosuvastatin 20 MG TAB PO SCH (21:33)
[2020-08-05] MEDS: Sodium Chloride 0.9% 1,000 ML IV SCH ×2 (02:03→17:04)
[2020-08-05] MEDS: Aspirin 300 MG Suppository PR SCH (10:22)
[2020-08-05] MEDS: Metoprolol Tartrate 5 MG/5 ML VIAL IVP SCH ×2 (10:22→22:01)
--- NOTE | 2020-08-05 12:35 | PDOC.HOSPP ---
- Subjective Encounter Date: 08/05/20 Encounter Time: 09:40 Subjective: Patient wants some water. He is n.p.o. for speech evaluation. I talked to the daughter Sherice at length about MRI findings and the risks and benefits being on Eliquis. And I also discussed with the specialists, wine consultant as well as neurology recommendations. The daughters do not want her father to be on blood thinner given the risks for SOCIAL MEDIA INTERN bleed with anticoagulant. - Objective Vital Signs & Weight: Vital Signs (12 hours) Temp Pulse Pulse Pulse Resp BP BP 08/05/20 12:14 98.8 F 81 20 08/05/20 10:28 158/82 H 08/05/20 10:15 97.5 F L 74 23 H 08/05/20 09:35 86 86 155/78 H 08/05/20 05:26 98.4 F 60 18 08/05/20 02:05 60 18 BP BP BP Pulse Ox Pulse Ox Pulse Ox 08/05/20 12:14 163/79 H 98 08/05/20 10:28 08/05/20 10:15 158/82 H 96 08/05/20 09:35 158/82 H 94 L 96 08/05/20 05:26 173/81 H 97 08/05/20 02:05 155/74 H 95 Weight Admit Weight 176 lb 12.972 oz Weight 176 lb 12.972 oz Most Recent Monitor Data Heart Rate from ECG 72 NIBP 137/77 NIBP BP-Mean 97 Respiration from ECG 21 SpO2 98 I&O: 08/04/20 08/05/20 08/06/20 06:59 06:59 06:59 Intake Total 1500 Output Total 250 1285 Balance -250 215 Result Diagrams: 08/02/20 19:23 08/02/20 19:23 Hospitalist ROS - Medication Medications: Active Medications Generic Name Dose Route Start Last Admin Trade Name Freq PRN Reason Stop Dose Admin Aspirin 300 mg 08/04/20 09:00 08/05/20 10:22 Aspirin 300 Mg Suppository MT 300 mg DAILY [facility] Administration Sodium Chloride 1,000 mls @ 75 mls/hr 08/04/20 00:30 08/05/20 02:03 Normal Saline 0.9% IV 1,000 mls .[id number] [facility] Administration Metoprolol Tartrate 25 mg 08/03/20 21:00 08/04/20 08:02 Metoprolol Tartrate 25 Mg Tab PO Not Given BID [facility] Metoprolol Tartrate 5 mg 08/03/20 21:00 08/05/20 10:22 Metoprolol Tartrate 5 Mg/5 Ml Vial IVP 5 mg BID [facility] Administration Rosuvastatin Calcium 40 mg 08/02/20 21:00 08/04/20 21:33 Rosuvastatin 20 Mg Tab PO Not Given HS [facility] Sodium Chloride 10 ml 08/02/20 20:56 08/04/20 21:53 Flush - Normal Saline 10 Ml Syringe IVF 10 ml PRN PRN Administration Saline Flush - Exam General Appearance: NAD, awake alert, ill appearing Eye: PERRL ENT: normocephalic atraumatic Neck: supple, no JVD Heart: RRR Respiratory: CTAB, normal chest expansion Gastrointestinal: soft, normal bowel sounds Neurological: cranial nerve grossly intact, no focal deficits Musculoskeletal: generalized weakness Psychiatric: oriented to person Hosp A/P - Plan 79 years old gentleman, with significant past medical history of dementia, alcohol abuse, lives by himself, presented to the ED with status post fall, and reportedly slurred speech, confusion for the past few days. Also noted to have atrial fibrillation with RVR. Atrial Fib with RVR --cont Cardizem gtt for rate control, -Echo showed EF of 60% with diastolic dysfunction. --ASA MT for now. 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 If that is the case putting him on anticoagulation would put him at higher risk than what he is currently. will check with the neurology as well. Dysarthria/Confusion - concerning for possible CVA Underlying history of dementia --SP/PT/OT eval MRI report noted as above. --appreciate neurology input. Cont ASA MT for now. Statin therapy when cleared by SP -EEG showed normal awake drowsy and asleep electroencephalogram. Dementia --supportive cares. Pending home meds. I talked to the daughter Sherice at length about MRI findings and the risks and benefits of being on Eliquis. And I also discussed the specialists, wine consultant as well as neurology recommendations. The daughters do not want her father to be on blood thinner given his comorbidities and the risks for SOCIAL MEDIA INTERN bleed with anticoagulant.
--- NOTE | 2020-08-05 13:25 | PDOC.CPN ---
- Subjective Date: 08/05/20 Time: 11:00 Interval history: No overnight events, patient remained in sinus rhythm throughout the night, he had no episodes of atrial fibrillation or RVR. He is not very responsive to me this morning. - Review of Systems ROS unobtainable: due to mental status - Objective Allergies/Adverse Reactions: Allergies Allergy/AdvReac Type Severity Reaction Status Date / Time No Known Drug Allergies Allergy Unverified 08/02/20 20:34 Visit Medications: Current Medications Aspirin (Aspirin 300 Mg Suppository) 300 mg AL DAILY [facility] Last Admin: 08/05/20 10:22 Dose: 300 mg Documented by: Sodium Chloride (Normal Saline 0.9%) 1,000 mls @ 75 mls/hr IV .[id number] [facility] Last Admin: 08/05/20 02:03 Dose: 1,000 mls Documented by: Metoprolol Tartrate (Metoprolol Tartrate 25 Mg Tab) 25 mg PO BID [facility] Last Admin: 08/04/20 08:02 Dose: Not Given Documented by: Metoprolol Tartrate (Metoprolol Tartrate 5 Mg/5 Ml Vial) 5 mg IVP BID [facility] Last Admin: 08/05/20 10:22 Dose: 5 mg Documented by: Ondansetron HCl (Ondansetron Pf 4 Mg/2 Ml Vial) 4 mg IVP Q6H PRN PRN Reason: Nausea/Vomiting Rosuvastatin Calcium (Rosuvastatin 20 Mg Tab) 40 mg PO HS [facility] Last Admin: 08/04/20 21:33 Dose: Not Given Documented by: Sodium Chloride (Flush - Normal Saline 10 Ml Syringe) 10 ml IVF PRN PRN PRN Reason: Saline Flush Last Admin: 08/04/20 21:53 Dose: 10 ml Documented by: Vital Signs & Weight: Vital Signs Temp Pulse Pulse Pulse Resp BP BP 08/05/20 12:14 98.8 F 81 20 08/05/20 10:28 158/82 H 08/05/20 10:15 97.5 F L 74 23 H 08/05/20 09:35 86 86 155/78 H 08/05/20 05:26 98.4 F 60 18 08/05/20 02:05 60 18 BP BP BP Pulse Ox Pulse Ox Pulse Ox 08/05/20 12:14 163/79 H 98 08/05/20 10:28 08/05/20 10:15 158/82 H 96 08/05/20 09:35 158/82 H 94 L 96 08/05/20 05:26 173/81 H 97 08/05/20 02:05 155/74 H 95 Admit Weight 176 lb 12.972 oz Weight 176 lb 12.972 oz - Quality Measures Condition: Atrial Fibrillation/Flutter (hx or current) CV meds: Beta Monica: Yes (IV Metoprolol ), REMY/ARB: No (Unable to take PO medications), Statin: No (Unable to take PO medications), ASA: Yes, Plavix/Effient/Brilinta: No (Unable to take PO medications), Anticoagulant: No (Not a good candidate for REHAN d/t falls & dementia) - Physical Exam General: appears well (alert, patient not able to answer questions), no apparent distress HEENT: mucus membranes moist Neck: supple neck, no JVD/HJR Cardiac: regular rate and rhythm, systolic murmur Lungs: normal breath sounds Neuro: grossly intact Abdomen: active bowel sounds, soft, non-tender Extremities: no edema Skin: clear - Labs Result Diagrams: 08/02/20 19:23 08/02/20 19:23 Troponin/CKMB Troponin I 0.021 ng/mL (< 0.028) 08/03/20 01:48 - EKG Interpretation EKG: sinus rhythm (SR HR remained in the 70's) - Assessment/Plan Assessment/Plan: 1. Atrial fibrillation with rapid ventricular response: he is in SR this morning with a HR of 73, he had no episodes of RVR overnight. He is NPO right now while we await a speech evaluation and possible swallow study. He is getting IV Metoprolol for rate control, we will continue this. He is not a good candidate for oral anticoagulation as he is an extremely high fall risk and history of dementia, he may not be compliant with medications because of this. 2. His Brain MRI also showed several remote microhemorrhages. 3. His echocardiogram showed an EF 55-60%, probably diastolic dysfunction, Moderately dilated left atrium at 5.02 cm, mild mitral regurgitation, pulmonic regurgitation, and trace tricuspid regurgitation. Waiting for speech evaluation before making any medication changes to PO status at this time. Pt. seen and eval. by me. I agree with the a/P by the VEGETABLE THINNER. The HR is reasonably well controlled. Continue betablockers and increase if nec. to control the HR. No further cardiac workup is indicated. I will sign off. rodrigo
[2020-08-05] MEDS: Rosuvastatin 20 MG TAB PO SCH (22:01)
[2020-08-06] MEDS: Sodium Chloride 0.9% 1,000 ML IV SCH ×2 (06:00→22:32)
[2020-08-06] MEDS: Metoprolol Tartrate 5 MG/5 ML VIAL IVP SCH ×2 (08:45→22:32)
[2020-08-06] MEDS: Aspirin 300 MG Suppository PR SCH (08:53)
--- NOTE | 2020-08-06 12:47 | PDOC.NEUPN ---
- Subjective Encounter Date: 08/06/20 Subjective: There were no acute complaints in the last 24 hours. Patient is alert and awake - Objective Vital Signs & Weight: Vital Signs (12 hours) Temp Pulse Resp BP BP BP Pulse Ox 08/06/20 12:00 98.7 F 66 16 143/83 H 96 08/06/20 08:57 58 L 179/77 H 08/06/20 08:55 61 179/87 H 08/06/20 08:51 64 158/78 H 08/06/20 08:47 64 159/79 H 08/06/20 08:00 156/78 H 08/06/20 07:40 98.3 F 65 18 156/78 H 96 08/06/20 04:00 164/84 H 08/06/20 03:58 98.0 F 68 16 164/84 H 94 L Weight Admit Weight 176 lb 12.972 oz Weight 176 lb 12.972 oz Most Recent Monitor Data Heart Rate from ECG 72 NIBP 137/77 NIBP BP-Mean 97 Respiration from ECG 21 SpO2 98 I&O: 08/05/20 08/06/20 08/07/20 06:59 06:59 06:59 Intake Total 1500 Output Total 1285 1156 100 Balance 215 -1156 -100 Result Diagrams: 08/02/20 19:23 08/02/20 19:23 Radiology Reviewed by me: Yes EKG Reviewed by me: Yes ROS - Review of Systems ROS unobtainable: due to mental status - Medication Medications: Active Medications Generic Name Dose Route Start Last Admin Trade Name Freq PRN Reason Stop Dose Admin Aspirin 300 mg 08/04/20 09:00 08/06/20 08:53 Aspirin 300 Mg Suppository NM 300 mg DAILY [facility] Administration Sodium Chloride 1,000 mls @ 75 mls/hr 08/04/20 00:30 08/06/20 06:00 Normal Saline 0.9% IV 1,000 mls .[id number] [facility] Administration Metoprolol Tartrate 25 mg 08/03/20 21:00 08/04/20 08:02 Metoprolol Tartrate 25 Mg Tab PO Not Given BID [facility] Metoprolol Tartrate 5 mg 08/03/20 21:00 08/06/20 08:45 Metoprolol Tartrate 5 Mg/5 Ml Vial IVP 5 mg BID [facility] Administration Rosuvastatin Calcium 40 mg 08/02/20 21:00 08/05/20 22:01 Rosuvastatin 20 Mg Tab PO Not Given HS [facility]N Sodium Chloride 10 ml 08/02/20 20:56 08/04/20 21:53 Flush - Normal Saline 10 Ml Syringe IVF 10 ml PRN PRN Administration Saline Flush - Exam General Appearance: awake alert Eye: PERRL ENT: normocephalic atraumatic Neck: supple Respiratory: CTAB Cardiovascular: RRR Gastrointestinal: soft Extremities: no cyanosis Skin: normal turgor Neurological: no new deficit Musculoskeletal: normal tone, no muscle wasting PSYCH: normal affect, normal behavior, oriented to person Results - Labs Result Diagrams: 08/02/20 19:23 08/02/20 19:23 Lab results: WBC 12.1 thou/uL (4.8-10.8) H 08/02/20 19:23 Hgb 15.2 g/dL (14.0-18.0) 08/02/20 19:23 Hct 44.0 % (42.0-52.0) 08/02/20 19:23 MCV 91.7 fL (78.0-98.0) 08/02/20 19:23 Plt Count 194 thou/uL (130-400) 08/02/20 19:23 Neutrophils % 81.2 % (42.0-75.0) H 08/02/20 19:23 Sodium 142 mmol/L (136-145) 08/02/20 19:23 Potassium 3.6 mmol/L (3.5-5.1) 08/02/20 19:23 Chloride 104 mmol/L (98-107) 08/02/20 19:23 Carbon Dioxide 25 mmol/L (23-31) 08/02/20 19:23 BUN 16 mg/dL (8.4-25.7) 08/02/20 19:23 Creatinine 0.88 mg/dL (0.7-1.3) 08/02/20 19:23 Glucose 134 mg/dL (83-110) H 08/02/20 19:23 Lactic Acid 1.5 mmol/L (0.5-2.2) 08/02/20 19:39 Calcium 8.7 mg/dL (7.8-10.44) 08/02/20 19:23 Total Bilirubin 0.6 mg/dL (0.2-1.2) 08/02/20 19:23 AST 18 U/L (5-34) 08/02/20 19:23 ALT 19 U/L (8-55) 08/02/20 19:23 Alkaline Phosphatase 87 U/L (40-110) 08/02/20 19:23 Creatine Kinase 111 U/L (30-200) 08/02/20 19:23 Troponin I 0.021 ng/mL (< 0.028) 08/03/20 01:48 Serum Total Protein 6.7 g/dL (5.8-8.1) 08/02/20 19:23 Albumin 3.8 g/dL (3.4-4.8) 08/02/20 19:23 Lipase 20 U/L (8-78) 08/02/20 19:23 Urine Ketones 20 mg/dL (Negative) A 08/02/20 19:51 Urine Blood 2+ (Negative) A 08/02/20 19:51 Urine Nitrite Negative (Negative) 08/02/20 19:51 Ur Leukocyte Esterase Negative Abril/uL (Negative) 08/02/20 19:51 Urine RBC 11-20 HPF (0-3) A 08/02/20 19:51 Urine WBC 4-6 HPF (0-3) A 08/02/20 19:51 Ur Squamous Epith Cells 0-3 HPF (0-3) 08/02/20 19:51 Urine Bacteria None Seen HPF (None Seen) 08/02/20 19:51 - Radiology Interpretation MRI - head Additional Comment: MRI of the brain was positive for acute infarction PN A/P (1) Acute CVA (cerebrovascular accident) Code(s): I63.9 - CEREBRAL INFARCTION, UNSPECIFIED Status: Acute (2) Atrial fibrillation Code(s): I48.91 - UNSPECIFIED ATRIAL FIBRILLATION Status: Acute - Plan Daily Plan: PT/OT, speech therapy, DVT proph w/SCDs Mr. Jones is a 79-year-old male who was brought to the emergency room after he has been found down and had strokelike symptoms. MRI of the brain reviewed which showed multiple tiny acute lacunar infarct in the left corpus callosum and remote microhemorrhages. Telemetry showed new onset atrial fibrillation. Cardiology is on board. Suggested Eliquis for atrial fibrillation . However, the patient seems to be in sinus rhythm per last cardiology note and there is a concern about noncompliance with Eliquis and bleeding risk due to falls to cardiology feel that he is not a good candidate for chronic anticoagulation. Suggested to continue metoprolol for rate control. 2D echocardiogram showed left ventricular ejection fraction 55 to 60%. No thrombus or PFO Neurochecks every 4 hours. CTA of the head and neck did not reveal hemodynamically significant stenosis. N.p.o. till cleared by speech. PT/OT Continue aspirin per rectally and start high intensity statin for secondary stroke prevention when patient is cleared by speech. Continue medical management per primary team and cardiology. Plan discussed in detail with the patient and also with the nursing staff.
--- NOTE | 2020-08-06 12:48 | PDOC.HOSPP ---
- Subjective Encounter Date: 08/06/20 Encounter Time: 08:50 Subjective: Patient at his baseline status. It appears he able to swallow and recommendation is to follow with modified barium swallow study. - Objective Vital Signs & Weight: Vital Signs (12 hours) Temp Pulse Resp BP BP BP Pulse Ox 08/06/20 12:00 98.7 F 66 16 143/83 H 96 08/06/20 08:57 58 L 179/77 H 08/06/20 08:55 61 179/87 H 08/06/20 08:51 64 158/78 H 08/06/20 08:47 64 159/79 H 08/06/20 08:00 156/78 H 08/06/20 07:40 98.3 F 65 18 156/78 H 96 08/06/20 04:00 164/84 H 08/06/20 03:58 98.0 F 68 16 164/84 H 94 L Weight Admit Weight 176 lb 12.972 oz Weight 176 lb 12.972 oz Most Recent Monitor Data Heart Rate from ECG 72 NIBP 137/77 NIBP BP-Mean 97 Respiration from ECG 21 SpO2 98 I&O: 08/05/20 08/06/20 08/07/20 06:59 06:59 06:59 Intake Total 1500 Output Total 1285 1156 100 Balance 215 -1156 -100 Result Diagrams: 08/02/20 19:23 08/02/20 19:23 Hospitalist ROS - Medication Medications: Active Medications Generic Name Dose Route Start Last Admin Trade Name Freq PRN Reason Stop Dose Admin Aspirin 300 mg 08/04/20 09:00 08/06/20 08:53 Aspirin 300 Mg Suppository NE 300 mg DAILY QUINN Administration Sodium Chloride 1,000 mls @ 75 mls/hr 08/04/20 00:30 08/06/20 06:00 Normal Saline 0.9% IV 1,000 mls .[id number] QUINN Administration Metoprolol Tartrate 25 mg 08/03/20 21:00 08/04/20 08:02 Metoprolol Tartrate 25 Mg Tab PO Not Given BID QUINN Metoprolol Tartrate 5 mg 08/03/20 21:00 08/06/20 08:45 Metoprolol Tartrate 5 Mg/5 Ml Vial IVP 5 mg BID QUINN Administration Rosuvastatin Calcium 40 mg 08/02/20 21:00 08/05/20 22:01 Rosuvastatin 20 Mg Tab PO Not Given HS QUINN Sodium Chloride 10 ml 08/02/20 20:56 08/04/20 21:53 Flush - Normal Saline 10 Ml Syringe IVF 10 ml PRN PRN Administration Saline Flush - Exam General Appearance: NAD, awake alert Eye: PERRL ENT: normocephalic atraumatic Neck: supple Heart: RRR, normal peripheral pulses Respiratory: CTAB, normal chest expansion Gastrointestinal: soft, normal bowel sounds Neurological: cranial nerve grossly intact, no focal deficits Musculoskeletal: generalized weakness Psychiatric: oriented to person Hosp A/P - Plan 79 years old gentleman, with significant past medical history of dementia, alcohol abuse, lives by himself, presented to the ED with status post fall, and reportedly slurred speech, confusion for the past few days. Also noted to have atrial fibrillation with RVR. Atrial Fib with RVR --cont Cardizem gtt for rate control, -Echo showed EF of 60% with diastolic dysfunction. --ASA NE for now. 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 If that is the case putting him on anticoagulation would put him at higher risk than what he is currently. will check with the neurology as well. Dysarthria/Confusion - concerning for possible CVA Underlying history of dementia --SP/PT/OT eval MRI report noted as above. --appreciate neurology input. Cont ASA NE for now. Statin therapy when cleared by SP -EEG showed normal awake drowsy and asleep electroencephalogram. Dementia --supportive cares. Pending home meds. I talked to the daughter Sherice at length about MRI findings and the risks and benefits of being on Eliquis. And I also discussed the specialists, card iologist as well as neurology recommendations. 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 Modified barium swallow study evaluation today.
--- NOTE | 2020-08-06 13:55 | RAD ---
EXAM: XR Ba Swallow W/Speech Therap PROVIDED CLINICAL HISTORY: Dysphagia following cerebral infarction. Dysphagia, unspecified. Feeding difficulties. COMPARISON: None FINDINGS: This examination is performed in conjunction with speech pathology. Patient was administered varying consistencies of barium during the exam. The patient demonstrates significant delay and difficulty in formation of the bolus into the posterior pharynx with premature spill of contrast into the vallec yamil and piriform sinuses prior to initiation of swallowing mechanism. Significant pooling is seen within the vallecula throughout the study with difficulty in clearing. Patient demonstrated several e pisodes of arlene aspiration. The patient did demonstrate appropriate cough reflex on a few episodes of aspiration, but on other episodes of aspiration, the patient did not demonstrate appropriate cough reflex. Patient also demonstrated aspiration with residue within the vallecula and piriform sinuses. IMPRESSION: Multiple episodes of aspiration.
[2020-08-06] MEDS: Rosuvastatin 20 MG TAB PO SCH (22:33)
[2020-08-07 06:53] LABS: #Eosinphils 0.2 thou/uL (0.0-0.7); #Lymphocytes 1.6 thou/uL (1.20-3.40); #Monocytes 0.5 thou/uL (0.11-0.59); #Neutrophils 5.3 thou/uL (1.40-6.50); %Basophils 0.6 % (0.0-1.0); %Eosinophils 2.5 % (0.0-10.0); %Lymphocytes 20.8 % (21.0-51.0); %Monocytes 6.5 % (0.0-10.0); %Neutrophils 69.6 % (42.0-75.0); Hemoglobin 14.7 g/dL (14.0-18.0); Mean Corpuscular HGB CONC 34.8 g/dL (32.0-36.0); Mean Corpuscular Hemoglobin 31.9 pg (27.0-31.0); Mean Corpuscular Volume 91.5 fL (78.0-98.0); Mean Platelet Volume 8.4 fL (7.4-10.4); Platelet Count 178 thou/uL (130-400); RBC Distribution Width 11.9 % (11.5-14.5); Red Blood Cell (RBC) Count 4.62 mill/uL (4.70-6.10); White Blood Cell (WBC) Count 7.6 thou/uL (4.8-10.8)
[2020-08-07 07:12] LABS: Anion Gap 17 mmol/L (10-20); BUN (Urea Nitrogen) 9 mg/dL (8.4-25.7); Calc. Creatinine Clearance 102 mL/min (70-130); Calcium 8.3 mg/dL (7.8-10.44); Carbon Dioxide 23 mmol/L (23-31); Chloride 107 mmol/L (98-107); Glucose 85 mg/dL (83-110); Sodium 144 mmol/L (136-145)
[2020-08-07 07:18] LABS: Potassium 2.9 mmol/L (3.5-5.1)
[2020-08-07] MEDS ORDERED: Potassium Chloride 40 MEQ in Sodium Chloride 0.9% 250 ML 250 ML IV SCH (08:15)
[2020-08-07] MEDS: Aspirin 300 MG Suppository PR SCH (08:37)
[2020-08-07] MEDS: Metoprolol Tartrate 5 MG/5 ML VIAL IVP SCH ×2 (08:37→21:55)
--- NOTE | 2020-08-07 13:00 | PDOC.NEUPN ---
- Subjective Encounter Date: 08/07/20 Subjective: Mr. Mendes is alert and awake and no acute complaints reported in the last 24 hours - Objective Vital Signs & Weight: Vital Signs (12 hours) Temp Pulse Pulse Resp BP BP BP 08/07/20 12:10 167/78 H 08/07/20 11:24 98.1 F 55 L 16 08/07/20 09:06 67 183/92 H 08/07/20 08:05 142/92 H 08/07/20 07:30 08/07/20 07:28 97.7 F 60 18 08/07/20 04:30 98 F 65 16 161/76 H BP Pulse Ox 08/07/20 12:10 08/07/20 11:24 167/78 H 97 08/07/20 09:06 08/07/20 08:05 08/07/20 07:30 98 08/07/20 07:28 142/92 H 98 08/07/20 04:30 98 Weight Admit Weight 176 lb 12.972 oz Weight 176 lb 12.972 oz Most Recent Monitor Data Heart Rate from ECG 72 NIBP 137/77 NIBP BP-Mean 97 Respiration from ECG 21 SpO2 98 I&O: 08/06/20 08/07/20 08/08/20 06:59 06:59 06:59 Intake Total 650 Output Total 1156 800 Balance -1156 -150 Result Diagrams: 08/07/20 06:34 08/07/20 06:34 Radiology Reviewed by me: Yes EKG Reviewed by me: Yes ROS - Review of Systems ROS unobtainable: due to mental status (Speech deficit) - Medication Medications: Active Medications Generic Name Dose Route Start Last Admin Trade Name Freq PRN Reason Stop Dose Admin Aspirin 300 mg 08/04/20 09:00 08/07/20 08:37 Aspirin 300 Mg Suppository [place] 300 mg DAILY QUINN Administration Sodium Chloride 1,000 mls @ 75 mls/hr 08/04/20 00:30 08/06/20 22:32 Normal Saline 0.9% IV 1,000 mls .[id number] QUINN Administration Potassium Chloride 40 meq/ 270 mls @ 60 mls/hr 08/07/20 08:15 08/07/20 08:35 Sodium Chloride IV 08/07/20 14:00 270 mls NOW QUINN Administration Metoprolol Tartrate 25 mg 08/03/20 21:00 08/04/20 08:02 Metoprolol Tartrate 25 Mg Tab PO Not Given BID QUINN Metoprolol Tartrate 5 mg 08/03/20 21:00 08/07/20 08:37 Metoprolol Tartrate 5 Mg/5 Ml Vial IVP 5 mg BID QUINN Administration Rosuvastatin Calcium 40 mg 08/02/20 21:00 08/06/20 22:33 Rosuvastatin 20 Mg Tab PO Not Given HS QUINN Sodium Chloride 10 ml 08/02/20 20:56 08/06/20 22:32 Flush - Normal Saline 10 Ml Syringe IVF 10 ml PRN PRN Administration Saline Flush - Exam General Appearance: awake alert Eye: PERRL ENT: normocephalic atraumatic Neck: supple Respiratory: CTAB Cardiovascular: RRR Gastrointestinal: soft Extremities: no cyanosis Skin: normal turgor Neurological: no new deficit Musculoskeletal: normal tone, no muscle wasting PSYCH: normal affect, normal behavior Results - Labs Result Diagrams: 08/07/20 06:34 08/07/20 06:34 Lab results: WBC 7.6 thou/uL (4.8-10.8) 08/07/20 06:34 Hgb 14.7 g/dL (14.0-18.0) 08/07/20 06:34 Hct 42.3 % (42.0-52.0) 08/07/20 06:34 MCV 91.5 fL (78.0-98.0) 08/07/20 06:34 Plt Count 178 thou/uL (130-400) 08/07/20 06:34 Neutrophils % 69.6 % (42.0-75.0) 08/07/20 06:34 Sodium 144 mmol/L (136-145) 08/07/20 06:34 Potassium 2.9 mmol/L (3.5-5.1) L* 08/07/20 06:34 Chloride 107 mmol/L (98-107) 08/07/20 06:34 Carbon Dioxide 23 mmol/L (23-31) 08/07/20 06:34 BUN 9 mg/dL (8.4-25.7) 08/07/20 06:34 Creatinine 0.68 mg/dL (0.7-1.3) L 08/07/20 06:34 Glucose 85 mg/dL (83-110) 08/07/20 06:34 Lactic Acid 1.5 mmol/L (0.5-2.2) 08/02/20 19:39 Calcium 8.3 mg/dL (7.8-10.44) 08/07/20 06:34 Total Bilirubin 0.6 mg/dL (0.2-1.2) 08/02/20 19:23 AST 18 U/L (5-34) 08/02/20 19:23 ALT 19 U/L (8-55) 08/02/20 19:23 Alkaline Phosphatase 87 U/L (40-110) 08/02/20 19:23 Creatine Kinase 111 U/L (30-200) 08/02/20 19:23 Troponin I 0.021 ng/mL (< 0.028) 08/03/20 01:48 Serum Total Protein 6.7 g/dL (5.8-8.1) 08/02/20 19:23 Albumin 3.8 g/dL (3.4-4.8) 08/02/20 19:23 Lipase 20 U/L (8-78) 08/02/20 19:23 Urine Ketones 20 mg/dL (Negative) A 08/02/20 19:51 Urine Blood 2+ (Negative) A 08/02/20 19:51 Urine Nitrite Negative (Negative) 08/02/20 19:51 Ur Leukocyte Esterase Negative Abril/uL (Negative) 08/02/20 19:51 Urine RBC 11-20 HPF (0-3) A 08/02/20 19:51 Urine WBC 4-6 HPF (0-3) A 08/02/20 19:51 Ur Squamous Epith Cells 0-3 HPF (0-3) 08/02/20 19:51 Urine Bacteria None Seen HPF (None Seen) 08/02/20 19:51 - Radiology Interpretation MRI - head Additional Comment: MRI of the brain was consistent with acute infarction patient presentation PN A/P (1) Acute CVA (cerebrovascular accident) Code(s): I63.9 - CEREBRAL INFARCTION, UNSPECIFIED Status: Acute (2) Atrial fibrillation Code(s): I48.91 - UNSPECIFIED ATRIAL FIBRILLATION Status: Acute - Plan Daily Plan: PT/OT, speech therapy, DVT proph w/SCDs Mr. Jones is a 79-year-old male who was brought to the emergency room after he has been found down and had strokelike symptoms. Mr. Be is doing well but seems like he has multiple episodes of aspiration during barium swallow study and is still not cleared by speech. He has significant dysphagia. N.p.o. till cleared by speech. Neurochecks every 4 hours. MRI of the brain reviewed which showed multiple tiny acute lacunar infarct in the left corpus callosum and remote microhemorrhages. Telemetry showed new onset atrial fibrillation. Cardiology is on board. Suggested Eliquis for atrial fibrillation . However, the patient seems to be in sinus rhythm per last cardiology note and there is a concern about noncompliance with Eliquis and bleeding risk due to falls to cardiology feel that he is not a good candidate for chronic anticoagulation. Suggested to continue metoprolol for rate control. 2D echocardiogram showed left ventricular ejection fraction 55 to 60%. No thrombus or PFO Neurochecks every 4 hours. CTA of the head and neck did not reveal hemodynamically significant stenosis. N.p.o. till cleared by speech. PT/OT Control of blood pressure and blood glucose. Continue aspirin per rectally and start high intensity statin for secondary stroke prevention when patient is cleared by speech. Continue medical management per primary team Case management on board regarding discharge planning. Plan discussed in detail with the patient and also with the nursing staff.
--- NOTE | 2020-08-07 13:47 | PDOC.HOSPP ---
- Subjective Encounter Date: 08/07/20 Encounter Time: 09:00 Subjective: Patient at baseline status. Modified barium swallow study reviewed. Day it appears he is risk for aspiration. will talk to the family. - Objective Vital Signs & Weight: Vital Signs (12 hours) Temp Pulse Pulse Resp BP BP BP 08/07/20 12:10 167/78 H 08/07/20 11:24 98.1 F 55 L 16 08/07/20 09:06 67 183/92 H 08/07/20 08:05 142/92 H 08/07/20 07:30 08/07/20 07:28 97.7 F 60 18 08/07/20 04:30 98 F 65 16 161/76 H BP Pulse Ox 08/07/20 12:10 08/07/20 11:24 167/78 H 97 08/07/20 09:06 08/07/20 08:05 08/07/20 07:30 98 08/07/20 07:28 142/92 H 98 08/07/20 04:30 98 Weight Admit Weight 176 lb 12.972 oz Weight 176 lb 12.972 oz Most Recent Monitor Data Heart Rate from ECG 72 NIBP 137/77 NIBP BP-Mean 97 Respiration from ECG 21 SpO2 98 I&O: 08/06/20 08/07/20 08/08/20 06:59 06:59 06:59 Intake Total 650 Output Total 1156 800 200 Balance -1156 -150 -200 Result Diagrams: 08/07/20 06:34 08/07/20 06:34 Hospitalist ROS - Medication Medications: Active Medications Generic Name Dose Route Start Last Admin Trade Name Richardq PRN Reason Stop Dose Admin Aspirin 300 mg 08/04/20 09:00 08/07/20 08:37 Aspirin 300 Mg Suppository [place] 300 mg DAILY QUINN Administration Sodium Chloride 1,000 mls @ 75 mls/hr 08/04/20 00:30 08/06/20 22:32 Normal Saline 0.9% IV 1,000 mls .[id number] QUINN Administration Potassium Chloride 40 meq/ 270 mls @ 60 mls/hr 08/07/20 08:15 08/07/20 08:35 Sodium Chloride IV 08/07/20 14:00 270 mls NOW QUINN Administration Metoprolol Tartrate 25 mg 08/03/20 21:00 08/04/20 08:02 Metoprolol Tartrate 25 Mg Tab PO Not Given BID QUINN Metoprolol Tartrate 5 mg 08/03/20 21:00 08/07/20 08:37 Metoprolol Tartrate 5 Mg/5 Ml Vial IVP 5 mg BID QUINN Administration Rosuvastatin Calcium 40 mg 08/02/20 21:00 08/06/20 22:33 Rosuvastatin 20 Mg Tab PO Not Given HS QUINN Sodium Chloride 10 ml 08/02/20 20:56 08/06/20 22:32 Flush - Normal Saline 10 Ml Syringe IVF 10 ml PRN PRN Administration Saline Flush - Exam General Appearance: NAD, awake alert Eye: PERRL ENT: normocephalic atraumatic Neck: supple Heart: RRR, normal peripheral pulses Respiratory: CTAB, normal chest expansion Gastrointestinal: soft, normal bowel sounds Neurological: cranial nerve grossly intact, no focal deficits Psychiatric: A&O x 3 Hosp A/P - Plan 79 years old gentleman, with significant past medical history of dementia, alcohol abuse, lives by himself, presented to the ED with status post fall, and reportedly slurred speech, confusion for the past few days. Also noted to have atrial fibrillation with RVR. Atrial Fib with RVR --cont Cardizem gtt for rate control, -Echo showed EF of 60% with diastolic dysfunction. --ASA FL for now. 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 If that is the case putting him on anticoagulation would put him at higher risk than what he is currently. will check with the neurology as well. Dysarthria/Confusion - concerning for possible CVA Underlying history of dementia --SP/PT/OT eval MRI report noted as above. --appreciate neurology input. Cont ASA FL for now. Statin therapy when cleared by SP -EEG showed normal awake drowsy and asleep electroencephalogram. Dementia --supportive cares. Pending home meds. I talked to the daughter Sherice at length about MRI findings and the risks and benefits of being on Eliquis. And I also discussed the specialists, movement education specialist as well as neurology recommendations. 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 Modified barium swallow study evaluation --shows risk for aspiration. Given his age and dementia as well as his comorbidities he may not be a strong candidate for a PEG tube evaluation. However i will address with the family. Palliative also on board.
[2020-08-07] MEDS: Sodium Chloride 0.9% 1,000 ML IV SCH ×2 (15:26→22:21)
[2020-08-07] MEDS: Rosuvastatin 20 MG TAB PO SCH (21:55)
[2020-08-08] MEDS: Sodium Chloride 0.9% 1,000 ML IV SCH (07:00)
[2020-08-08] MEDS ORDERED: Potassium Chloride 40 MEQ in Dextrose 5% in Water 1,000 ML IV SCH (09:15)
[2020-08-08 10:42] LABS: Anion Gap 15 mmol/L (10-20); BUN (Urea Nitrogen) 7 mg/dL (8.4-25.7); Calc. Creatinine Clearance 91 mL/min (70-130); Calcium 8.9 mg/dL (7.8-10.44); Carbon Dioxide 26 mmol/L (23-31); Chloride 106 mmol/L (98-107); Glucose 132 mg/dL (83-110); Potassium 3.2 mmol/L (3.5-5.1); Sodium 144 mmol/L (136-145)
[2020-08-08] MEDS ORDERED: hydrALAZINE 25 MG TAB PO SCH (10:45)
[2020-08-08] MEDS: Aspirin 300 MG Suppository PR SCH (11:15)
[2020-08-08] MEDS: Metoprolol Tartrate 5 MG/5 ML VIAL IVP SCH (11:24)
--- NOTE | 2020-08-08 12:57 | PDOC.HOSPP ---
- Subjective Encounter Date: 08/08/20 Encounter Time: 09:00 Subjective: He is a severe risk for aspiration it appears that family decided that he can have regular p.o. intake with aspiration risk. - Objective Vital Signs & Weight: Vital Signs (12 hours) Temp Pulse Pulse Resp BP BP BP 08/08/20 11:42 98 F 70 16 08/08/20 11:22 69 08/08/20 10:02 67 177/84 H 08/08/20 07:44 98.3 F 61 16 08/08/20 04:00 98.4 F 64 20 174/83 H 08/08/20 02:02 98.2 F 59 L 18 166/81 H BP Pulse Ox 08/08/20 11:42 98 08/08/20 11:22 08/08/20 10:02 08/08/20 07:44 190/85 H 97 08/08/20 04:00 174/83 H 96 08/08/20 02:02 91 L Weight Admit Weight 176 lb 12.972 oz Weight 176 lb 12.972 oz Most Recent Monitor Data Heart Rate from ECG 72 NIBP 137/77 NIBP BP-Mean 97 Respiration from ECG 21 SpO2 98 I&O: 08/07/20 08/08/20 08/09/20 06:59 06:59 06:59 Intake Total 650 600 120 Output Total 800 695 Balance -150 -95 120 Result Diagrams: 08/07/20 06:34 08/08/20 10:07 Hospitalist ROS - Medication Medications: Active Medications Generic Name Dose Route Start Last Admin Trade Name Freq PRN Reason Stop Dose Admin Potassium Chloride 40 meq/ 1,020 mls @ 50 mls/hr 08/08/20 09:15 08/08/20 11:22 Dextrose/Water IV 08/09/20 05:38 1,020 mls .[id number] QUINN Administration Metoprolol Tartrate 25 mg 08/03/20 21:00 08/04/20 08:02 Metoprolol Tartrate 25 Mg Tab PO Not Given BID QUINN Rosuvastatin Calcium 40 mg 08/02/20 21:00 08/07/20 21:55 Rosuvastatin 20 Mg Tab PO 40 mg HS QUINN Administration Sodium Chloride 10 ml 08/02/20 20:56 08/06/20 22:32 Flush - Normal Saline 10 Ml Syringe IVF 10 ml PRN PRN Administration Saline Flush - Exam General Appearance: NAD, awake alert Eye: PERRL ENT: normocephalic atraumatic Neck: supple Heart: RRR, normal peripheral pulses Respiratory: CTAB, normal chest expansion Gastrointestinal: soft, normal bowel sounds Neurological: cranial nerve grossly intact, no focal deficits Psychiatric: oriented to person Hosp A/P - Plan 79 years old gentleman, with significant past medical history of dementia, alcohol abuse, lives by himself, presented to the ED with status post fall, and reportedly slurred speech, confusion for the past few days. Also n oted to have atrial fibrillation with RVR. Atrial Fib with RVR --cont Cardizem gtt for rate control, -Echo showed EF of 60% with diastolic dysfunction. --ASA MI for now. 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 If that is the case putting him on anticoagulation would put him at higher risk than what he is cur rently. will check with the neurology as well. Dysarthria/Confusion - concerning for possible CVA Underlying history of dementia --SP/PT/OT eval MRI report noted as above. --appreciate neurology input. Cont ASA MI for now. Statin therapy when cleared by SP -EEG showed normal awake drowsy and asleep electroencephalogram. Dementia --supportive cares. Pending home meds. I talked to the daughter Sherice at length about MRI findings and the risks and benefits of being on Eliquis. And I also discussed the specialists, needle grader as well as neurology recommendations. The daughters do not want her father to be on blood thinner given his comorbidities and the risks for SURVEILLANCE SYSTEMS ANALYST bleed with anticoagulant. Modified barium swallow study evaluation --shows risk for aspiration. Given his age and dementia as well as his comorbidities he may not be a strong candidate for a PEG tube evaluation. However i will address with the family. Palliative also on board. 16th family decided that he can have regular p.o. intake with aspiration risk. Plan to send him to the rehab.
[2020-08-08] MEDS: hydrALAZINE 25 MG TAB PO SCH ×3 (13:32→21:00)
[2020-08-08] MEDS: Rosuvastatin 20 MG TAB PO SCH (21:00)
[2020-08-09] MEDS ORDERED: Aspirin Chewable 81 MG TAB PO SCH (09:00)
[2020-08-09] MEDS: hydrALAZINE 25 MG TAB PO SCH (10:28)
[2020-08-09 11:41] VITALS: BP 137/70; TEMP 97.3
--- NOTE | 2020-08-09 13:04 | PDOC.DS.DS ---
Provider - Provider Date of Admission: 08/02/20 20:44 Admitting Provider: Antonio Abdul MD Primary Care Physician: OUT OF TOWN Course - Hospital Course Hospital Course: 29-year-old male presented with 79 years old gentleman, with significant past medical history of dementia, alcohol abuse, lives by himself, presented to the ED with status post fall, and reportedly slurred speech, confusion for the past few days. Also noted to have atrial fibrillation with RVR. Atrial Fib with RVR --cont Cardizem gtt for rate control, -Echo showed EF of 60% with diastolic dysfunction. --ASA OR for now. 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 If that is the case putting him on anticoagulation would put him at higher risk than what he is currently. will check with the neurology as well. Dysarthria/Confusion - concerning for possible CVA Underlying history of dementia --SP/PT/OT eval MRI report noted as above. --appreciate neurology input. Cont ASA OR for now. Statin therapy when cleared by SP -EEG showed normal awake drowsy and asleep electroencephalogram. Dementia --supportive cares. Pending home meds. I talked to the daughter Sherice at length about MRI findings and the risks a nd benefits of being on Eliquis. And I also discussed the specialists, polishing pad mounter as well as neurology recommendations. 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 Modified barium swallow study evaluation --shows risk for aspiration. Given his age and dementia as well as his comorbidities he may not be a strong candidate for a PEG tube evaluation. Family opted to have a comfort care approach p.o. intake with aspiration risk. Will be discharged home today with home health. Discharge time over 30 minutes. Resuscitation Status: 08/07/20 16:45 Resuscitation Status Routine Resuscitation Status: DNAR: NO Resuscitation Discussed with: pt. and his daughter Gloria - Labs Lab Results: 08/07/20 06:34 08/09/20 09:34 Abnormal Lab Results - Last 48 hrs 08/08/20 10:07: Potassium 3.2 L, BUN 7 L 08/09/20 09:34: Potassium 3.0 L - Physical Exam Vitals: Vital Signs (12 hours) Temp Pulse Resp BP BP BP Pulse Ox 08/09/20 11:20 97.3 F L 74 22 H 137/70 98 08/09/20 07:30 97.5 F L 71 22 H 148/78 H 97 08/09/20 04:30 150/76 H 08/09/20 04:29 150/76 H 08/09/20 04:00 97.7 F 73 20 167/79 H 97 Weight Admit Weight 176 lb 12.972 oz Weight 176 lb 12.972 oz Most Recent Monitor Data Heart Rate from ECG 72 NIBP 137/77 NIBP BP-Mean 97 Respiration from ECG 21 SpO2 98 Physical Exam: The patient was seen and examined on the day of discharge. He is much more alert and active and following commands. Speech therapy nearby. He is going to be on a pured diet. Plan to be discharged today. Plan - Discharge Medications Prescriptions: Aspirin Chewable [Aspirin Chewable Tablet] 81 mg PO DAILY 30 Days #30 tab Rosuvastatin [Crestor] 40 mg PO HS 30 Days #30 tab Metoprolol Tartrate [Lopressor] 25 mg PO BID 30 Days #60 tab Home Medications: Medication Instructions Recorded Confirmed Type Amlodipine Besylate [amLODIPine 10 mg PO DAILY 08/03/20 08/03/20 History Besylate] Latanoprost [Latanoprost 0.05% 1 drop EA EYE HS 08/03/20 08/03/20 History Ophth] QUEtiapine Fumarate [SEROquel] 12.5 mg PO BID PRN 08/03/20 08/03/20 History Aspirin Chewable [Aspirin Chewable 81 mg PO DAILY 30 Days #30 tab 08/08/20 Rx Tablet] Metoprolol Tartrate [Lopressor] 25 mg PO BID 30 Days #60 tab 08/08/20 Rx Rosuvastatin [Crestor] 40 mg PO HS 30 Days #30 tab 08/08/20 Rx Allergies: No Known Drug Allergies Allergy (Verified 08/09/20 10:28) PER ER NOTES - Discharge Instructions Discharge Instructions:: Referred to [facility] [phone]. Pt to admit to [facility] in [facility]. PCP followup in 1 to 2 weeks Activity:: Activity as Tolerated Nourishment:: Heart Healthy Diet - Follow up Plan Referrals: [facility],OUT OF [Primary Care Provider] - (per daughter pt has appt with Dr Moses Smith on 08/15) Disposition: REHABILITATION INPATIENT Quality - Care Measures CORE MEASURES:: N/A
--- NOTE | 2020-08-11 14:47 | EKG ---
Test Reason : Blood Pressure : / mmHG Vent. Rate : 101 BPM Atrial Rate : 060 BPM P-R Int : 000 ms QRS Dur : 096 ms QT Int : 362 ms P-R-T Axes : 000 020 028 degrees QTc Int : 469 ms Atrial fibrillation with rapid ventricular response Nonspecific ST and T wave abnormality Abnormal ECG Confirmed by MILE MILES DO ([id number]), editor at large FOUZIA LIRA ([id number]) on 08/11/2020 2:46:48 PM Referred By: Confirmed By:MILE MILES DO
== END 2020-08-09 14:00 | disposition home health service (06) | DRG 308 ==
LOC: ERS 19:18 → ERHOLD 20:44 → IMCU/EMU 08-03 04:05 → 2SE 08-03 16:10
PROVIDERS: ADMIT Internal Medicine; ATTEND Internal Medicine
DX: I48.91 Unspecified atrial fibrillation (principal); I63.81 Other cerebral infarction due to occlusion or stenosis of small artery; Z20.828 Contact with and (suspected) exposure to other viral communicable diseases; F03.90 Unspecified dementia, unspecified severity, without behavioral disturbance, psychotic disturbance, mood disturbance, and anxiety; F10.11 Alcohol abuse, in remission; R47.1 Dysarthria and anarthria; R29.810 Facial weakness; I08.1 Rheumatic disorders of both mitral and tricuspid valves; R13.10 Dysphagia, unspecified; I99.8 Other disorder of circulatory system
CPT/HCPCS: 36415; 36416; 70450; 70496; 70498; 70551; 71045; 74230; 80048; 80053; 80061; 80306; 80307; 81003; 81015; 82306; 82550; 82746; 83605; 83690; 84132; 84425; 84484; 85025; 85610; 85730; 87635; 93005; 93306; 95712; 95819; 95957; 96372; G0103; J1650; J3480; J3490; J7050; J7070; Q9967; U0003